=== PATIENT | female | born 1980 | race Caucasian/White ===

== ENCOUNTER 2016-04-02 02:22 | Emergency (ER) | payer MEDICAID ==
[~2016-04-02] VITALS: Ht 165.1 cm; Wt 78.0 kg
[2016-04-02 02:25] VITALS: Ht 165.1 cm; Wt 78.0 kg
[2016-04-02] MEDS ORDERED: PREN1TAB62 PO (03:20)
--- NOTE | 2016-04-02 04:29 | ERA ---
ER Documentation Chief Complaint Date/Time DATE: 04/02/16 TIME: 04:28 Chief Complaint cough congestion for past 2 days HPI The patient is a 35-year-old female, 23 weeks , presenting to the ER because of cough, congestion for 2 days. She ran out of her albuterol inhaler. She denies fever, chills, neck pain, chest pain, dyspnea, abdominal pain, vomiting, vaginal bleeding, vaginal discharge, dysuria. She does not smoke, drink Past medical history: Asthma Past surgical history: None ROS All systems reviewed and are negative except as per history of present illness. Medications Home Meds Active Scripts Albuterol Sulfate* (Proair HFA*) 8.5 Gm Hfa.aer.ad, 2 PUFF INH Q4H Y for WHEEZING AND SOB, #1 INHALER Prov:PEE ZIMMERMAN MD 04/02/16 Prednisone* (Prednisone*) 20 Mg Tab, 60 MG PO DAILY for 5 Days, TAB Prov:PEE ZIMMERMAN MD 04/02/16 Reported Medications Vit-Iron Fumarate-FA ( Vitamin Tablet) 1 Each Tablet, 1 TAB PO DAILY, TAB 04/02/16 Allergies Allergies: Coded Allergies: No Known Drug Allergy (Verified Allergy, Unknown, 04/02/16) PMhx/Soc History of Surgery: No Anesthesia Reaction: No Hx Neurological Disorder: No Hx Respiratory Disorders: Yes (asthma) Hx Cardiac Disorders: No Hx Psychiatric Problems: No Hx Miscellaneous Medical Probl: No Hx Alcohol Use: No Hx Substance Use: No Hx Tobacco Use: No Physical Exam Vitals Vital Signs Date Time Temp Pulse Resp B/P Pulse Ox O2 Delivery O2 Flow Rate FiO2 04/02/16 02:25 98.7 83 18 137/65 99 Physical Exam Const: No acute distress. Head: Atraumatic. Eyes: Normal Conjunctiva. ENT: Normal External Ears, Nose and Mouth. Neck: Full range of motion. No meningismus. Resp: Bilateral expiratory wheezes Cardio: Regular rate and rhythm, no murmurs. Abd: Soft, non distended, normal bowel sounds, non tender. Skin: No petechiae or rashes. Back: No midline or flank tenderness. Ext: No cyanosis, or edema. Neur: Awake and alert. No focal deficit Psych: Normal Mood and Affect. Results 24 hrs Current Medications Medications (Trade) Dose Ordered Sig/Nickie Route PRN Reason Start Time Stop Time Status Last Admin Dose Admin Levalbuterol (Xopenex Neb) 3.75 mg ONCE STAT INH 04/02/16 04:35 04/02/16 04:38 DC 04/02/16 04:44 Ipratropium [place] (Atrovent 0.02% (Neb)) 1.5 mg ONCE STAT INH 04/02/16 04:35 04/02/16 04:38 DC 04/02/16 04:43 Methylprednisolone Sodium Succinate (Solu-Medrol) 125 mg ONCE STAT IM 04/02/16 04:35 04/02/16 04:38 DC Procedures/MDM MEDICAL MAKING DECISION: The patient is a 35-year-old, presenting with acute asthma exacerbation. She was treated with Solu-Medrol 125 mg IM, Xopenex 3.75 mg and Atrovent 1.5 mg continuous nebulizer over one hour with good response. The differential diagnoses considered include but are not limited to asthma, COPD, pneumonia, pulmonary embolus, pleural effusion, congestive heart failure. Departure Diagnosis: Primary Impression: Asthma Condition: Good Comments She was discharged with albuterol MDI, prednisone I discussed the findings with the patient. I advised the patient to follow-up with the primary physician in about 1-2 days, sooner if needed and return if any concern. The patient's blood pressure was elevated (>120/80) but appears stable without evidence of hypertension emergency or urgency. The patient was counseled about the risks of hypertension and urged to pursue outpatient monitoring and therapy within a week with their primary care physician. PEE ZIMMERMAN MD Apr 02, 2016 04:29
[2016-04-02] MEDS ORDERED: IPRATROPIUM (NEB) 0.5 MG/2.5 ML AMP INH STA (04:35)
[2016-04-02] MEDS ORDERED: LEVALBUTEROL (NEB) 1.25 MG/0.5 ML AMP INH STA (04:35)
[2016-04-02] MEDS ORDERED: METHYLPREDNISOLONE 125 MG INJ IM STA (04:35)
[2016-04-02] MEDS ORDERED: PRED20TA PO (04:39)
[2016-04-02] MEDS ORDERED: ALBU8.5H3 INH (04:40)
[2016-04-02 06:03] VITALS: BP 110/63; PULSE 106; RESP 19
== END 2016-04-02 06:04 | disposition home or self-care (01) ==
LOC: E/R 02:22
DX: O99.512 Diseases of the respiratory system complicating pregnancy, second trimester (principal); J45.901 Unspecified asthma with (acute) exacerbation; R05 Cough; Z3A.23 23 weeks gestation of pregnancy
CPT/HCPCS: 94644; 96372; J2930; Z7502; Z7610

== ENCOUNTER 2016-04-02 03:00 | Outpatient (CLI) | payer MEDICAID ==
[~2016-04-02] VITALS: Ht 142.2 cm; Wt 76.2 kg
[2016-04-02 03:15] VITALS: Ht 142.2 cm; Wt 76.2 kg
[2016-04-02 03:17] VITALS: BP 112/64; PULSE 81; RESP 18
[2016-04-02] MEDS ORDERED: PREN1TAB62 PO (03:20)
[2016-04-02] MEDS ORDERED: PRED20TA PO (04:39)
[2016-04-02] MEDS ORDERED: ALBU8.5H3 INH (04:40)
--- NOTE | 2016-04-02 06:58 | QN ---
Documentation Comment 35 years old female with at 23 weeks and history of asthma presented with Shortness of breath and asthma attack. Denies any LOf, vaginla bleeding, and uterine contractions. Denies any decreased vaginal bleeidng, Denies any chest pain. No other complaint, Has a history of ASthema in the past, per patient symptoms decreased during . Has not been using treatment lately O; GA: A&O, NAD Lungs; Wheezing, No rales or ronchus CV: RRR Abdomen: Soft, non tender, Gravid Fundal height: Appropriate for GA Extremities No calf tenderness, negative [place] sign, no click, no edema O2 sat: 096 % in RA NST: CAt 1 and appropriate for GA No contractions on the monitor Assessment: IUP at 23 weeks + No OB issue SOB and wheezing due to asthma attack Patient will be sent to ED for treatment and evaluation Follow up with ob clinic in 1-2 days after DC home PTL precaution and [facility] Asthma eeucation and to continue Asthma treatment, Albuterol PRN after DC and follow up with PMD PASCUAL TOVAR MD Apr 02, 2016 06:58
== END 2016-04-02 03:40 | disposition home or self-care (01) ==
LOC: L-D 03:00 → OBT 03:00
PROVIDERS: ATTEND Obstetrics & Gynecology
DX: O99.512 Diseases of the respiratory system complicating pregnancy, second trimester (principal); J45.901 Unspecified asthma with (acute) exacerbation; Z3A.23 23 weeks gestation of pregnancy
CPT/HCPCS: G0463

== ENCOUNTER 2016-07-24 19:46 | Inpatient (IN) | payer MEDICAID ==
[~2016-07-24] VITALS: Ht 152.4 cm; Wt 78.2 kg
[~2016-07-24 19:46] MED LIST: ALBU8.5H3 INH; PRED20TA PO; PREN1TAB62 PO
[2016-07-24 20:22] VITALS: Ht 152.4 cm; Wt 78.2 kg
[2016-07-24 20:23] VITALS: BP 104/58; PULSE 65; RESP 18
[2016-07-24] MEDS ORDERED: FERR134T PO (20:27)
[2016-07-24] MEDS ORDERED: OXYTOCIN 30 UNITS/LR 500 ML IV PRN (20:30)
[2016-07-24] MEDS ORDERED: IBUPROFEN 600 MG TAB PO PRN (20:30)
[2016-07-24] MEDS ORDERED: MISOPROSTOL 200 MCG TAB PR PRN (20:30)
[2016-07-24] MEDS ORDERED: METHYLERGONOVINE 0.2 MG INJ IM PRN (20:30)
[2016-07-24] MEDS ORDERED: LIDOCAINE 1% (MPF) 30 ML INJ INJ PRN (20:30)
[2016-07-24] MEDS ORDERED: CARBOPROST 250 MCG INJ IM PRN (20:30)
[2016-07-24] MEDS ORDERED: OXYTOCIN 30 UNITS/LR 500 ML IV SCH ×2 (20:30)
[2016-07-24] MEDS ORDERED: ACETAMINOPHEN/CODEINE #3 TAB PO PRN (20:30)
[2016-07-24 20:41] LABS: ADD SCAN DIFF NO
[2016-07-24 20:43] LABS: BASOPHILS % 0.3 % (0.0-2.0); EOSINOPHILS # 0.1 10^3/ul (0.0-0.5); EOSINOPHILS % 1.9 % (0.0-7.0); HEMATOCRIT 35.5 % (37.0-47.0); HEMOGLOBIN 11.9 g/dl (12.0-16.0); LYMPHOCYTES # 1.4 10^3/ul (0.8-2.9); LYMPHOCYTES % 18.9 % (15.0-51.0); MEAN CORPUSCULAR HEMOGLOBIN 30.7 pg (29.0-33.0); MEAN CORPUSCULAR HGB CONC 33.5 g/dl (32.0-37.0); MEAN CORPUSCULAR VOLUME 91.7 fl (82.0-101.0); MONOCYTE # 0.6 10^3/ul (0.3-0.9); MONOCYTES % 7.3 % (0.0-11.0); NEUTROPHIL # 5.3 10^3/ul (1.6-7.5); NEUTROPHILS % 70.9 % (39.0-77.0); PLATELET COUNT 215 10^3/UL (140-415); RED BLOOD COUNT 3.87 10^6/ul (4.20-5.40); RED CELL DISTRIBUTION WIDTH 13.5 % (11.5-14.5); WHITE BLOOD COUNT 7.5 10^3/ul (4.8-10.8)
[2016-07-24] MEDS ORDERED: LACTATED RINGER'S 1,000 ML IV PRN (21:00)
[2016-07-24] MEDS: LACTATED RINGER'S 1,000 ML IV SCH (21:01)
[2016-07-24] MEDS: BUTORPHANOL 2 MG INJ IV PRN (21:02)
[2016-07-24 22:20] LABS: INR 0.94; PROTIME 12.6 Sec (12.2-14.2)
[2016-07-24 22:21] LABS: PARTIAL THROMBOPLASTIN TIME 26.7 Sec (25.0-35.0)
--- NOTE | 2016-07-24 22:30 | TRIAGE ---
OB Triage Datetime Report Generated by CPN: 07/24/2016 22:29 Datetime: 07/24/2016 22:17 Pain Assessment Pain Scale: 0 Pain Presence: None/Denies Pain Type: N/A Pain Goal: 0 Pain Assessment Comments: patient denies pain and is sleeping with respirations visible and audibl e Vaginal Exam Dilatation (cms): 7.0 Effacement (%): 90 Station: -1 Exam By: JF Membrane Status: Intact Vaginal Bleeding: None Cervix, Consistency: Soft Cervix, Position: Anterior Presentation 'A': Cephalic Datetime: 07/24/2016 21:30 Stage of : Labor Maternal Assessment Level of Consciousness: Fully Conscious Headache: Denies Blurred Vision: No Nausea/Vomiting: Denies RUQ Epigastric Pain: Denies Facial Edema: None Labor Evaluation Frequency: 1.5-6 Monitor Mode: External Duration (sec)2399: 50-90 Quality: Moderate Pattern: Normal: <= 5 Contractions in 10 Minutes Resting Tone [place]: Relaxed Heart Rate FHR Baseline Rate: 130 Monitor Mode: External US FHR Baseline Changes: No Baseline Change Variability: Moderate 6-25 bpm Accelerations: 15X15 Decelerations: None Category: Category I Pain Assessment Pain Scale: 0 Pain Presence: Intermittent Pain Type: N/A Pain Goal: 0 Pain Relief Measures: Comfort Measures Pain Assessment Comments: patient denies pain at this time Datetime: 07/24/2016 20:58 Pain Assessment Pain Scale: 2 Pain Presence: Intermittent Pain Type: Cramping; Contraction Pain Location: Abdomen; Back Pain Goal: 0 Pain Assessment Comments: Requesting pain medication Datetime: 07/24/2016 20:57 Stage of : Labor Datetime: 07/24/2016 20:42 Assessment Type: Admission Assessment Vaginal Bleeding: None Maternal Assessment Level of Consciousness: Fully Conscious DTR's/Clonus: DTRs Absent; No Clonus Headache: Denies Blurred Vision: No Respiratory Effort: Unlabored; Regular Rhythm; Equal Expansion Breath Sounds, Left: Clear and Equal Breath Sounds, Right: Clear and Equal Nausea/Vomiting: Denies RUQ Epigastric Pain: Denies Lower Extremities Edema: None Degree: None Upper Extremities Edema: None Degree: None Facial Edema: None Fall Risk Assessment History of Falling: (0) No Secondary Diagnosis: (0) No Ambulatory Aid: (0) Bedrest/Nurse Assist IV Therapy: (20) Yes Gait: (0) Normal/Bedrest/Immobile Mental Status: (0) Oriented to Own Ability Fall Score: 20 Fall Risk Score Definition: No Risk: No action required Pain Assessment Pain Scale: 6 Pain Presence: Intermittent Pain Type: Contraction Pain Location: Abdomen Membrane Status: Intact Datetime: 07/24/2016 20:39 Time of Arrival: 07/24/2016 20:00 EGA: 39.3 Arrived By: Wheelchair Arrived From: OB TRIAGE Datetime: 07/24/2016 20:15 Membrane Status: Intact Datetime: 07/24/2016 20:13 Vaginal Exam Dilatation (cms): 6.5 Effacement (%): 80 Station: -1 Exam By: Natasha Forbes RN Vaginal Bleeding: None Cervix, Consistency: Soft Cervix, Position: Anterior Presentation 'A': Cephalic Datetime: 07/24/2016 20:06 Monitor Mode: External Contraction Comments: Applied Monitor Mode: External US Comments: Applied Datetime: 07/24/2016 20:00 Time of Arrival: 07/24/2016 19:39 EGA: 39.3 Arrived By: Wheelchair Arrived From: Home Chief Complaint: UC's Movement: Present Contractions: Regular Time Contractions Began: 07/24/2016 05:00 Rupture of Membranes: Denies Vaginal Discharge: Denies Recent Sexual Intercouse: Denies Abdominal Trauma: Not Applicable Datetime: 07/13/2016 15:12 EGA: 23.2 Datetime: 04/02/2016 03:40 Stage of : OB Triage Datetime: 04/02/2016 03:30 Stage of : OB Triage Datetime: 04/02/2016 03:26 Labor Evaluation Frequency: 0 Monitor Mode: External Quality: Mild Pattern: Normal: <= 5 Contractions in 10 Minutes Resting Tone [place]: Relaxed Heart Rate FHR Baseline Rate: 145 Monitor Mode: External US FHR Baseline Changes: No Baseline Change Variability: Moderate 6-25 bpm Accelerations: 15X15 Decelerations: None Category: Category I Datetime: 04/02/2016 03:10 EGA: 23.2 Datetime: 04/02/2016 03:00 Stage of : OB Triage Time of Arrival: 04/02/2016 02:44 Arrived By: Wheelchair Arrived From: Emergency Dept Chief Complaint: ASTHMA Movement: Present Contractions: Denies/Absent Rupture of Membranes: Denies Vaginal Bleeding: None Vaginal Discharge: Denies Recent Sexual Intercouse: Denies Abdominal Trauma: Not Applicable Patient Complaints: None Additional Patient Complaints: PT STATES SHE IS HERE FOR ASTHMA, STATES DX 4 YRS AGO, PT RAN OUT OF INHALER X1 WK CAN NOT GET ANOTHER REFILL UNTIL 04/08/16, ON EXAMINATION EXPIRATORY WHEEZE HEARD (A nnotations: Data stored by CPN on behalf of user) Time Provider Notified: 04/02/2016 03:10 Initial Plan: CALL MALLORY FRAGOSO Maternal Assessment Level of Consciousness: Fully Conscious DTR's/Clonus: DTRs 2+; No Clonus Headache: Denies Blurred Vision: No Respiratory Effort: Unlabored; Regular Rhythm; Equal Expansion Breath Sounds, Left: Clear and Equal Breath Sounds, Right: Clear and Equal Nausea/Vomiting: Denies RUQ Epigastric Pain: Denies Lower Extremities Edema: None Degree: None Upper Extremities Edema: None Degree: None Facial Edema: None Temperature Route: Oral Fall Risk Assessment History of Falling: (0) No Secondary Diagnosis: (0) No Ambulatory Aid: (0) Bedrest/Nurse Assist IV Therapy: (0) No Gait: (0) Normal/Bedrest/Immobile Mental Status: (0) Oriented to Own Ability Fall Score: 0 Fall Risk Score Definition: No Risk: No action required Monitor Mode: External Monitor Mode: External US Pain Assessment Pain Scale: 8 Pain Presence: Intermittent Pain Type: Ache Pain Location: Back
--- NOTE | 2016-07-24 22:36 | RADRPT ---
PROCEDURE: Obstetrical ultrasound greater than 14 weeks CLINICAL INDICATION: labor TECHNIQUE: Real time sonographic imaging of the gravid uterus is performed transabdominally and mu ltiple static yoder scale and Doppler images are submitted for review as are measurements. The image s are reviewed on the PACS. COMPARISON: No relevant exams are available FINDINGS: There is a single living intrauterine gestation in cephalic presentation. The heart beat is estimated at 141 bpm. The measurements are as follows: BPD:9.21 cm HC:32.65 cm AC:33.05 cm FL:7.22 cm Estimated gestational age is 37 weeks 1 day. The estimated date of delivery is 08/13/2016. The estimated weight is 3095 grams. Placenta is the fundal and grade2. There is no evidence of placenta previa or abruption. The amniotic fluid is qualitatively low RPTAT:HJJR IMPRESSION: 1. Single viable intrauterine gestation in cephalic presentation estimated at 37 weeks 1 day with th e estimated date of delivery 08/13/2016. 2. Estimated weight 3095 g. 3. Fundal grade II placenta. Physician Ghislaine Date Time Electronically viewed and signed by Physician Ghislaine on 07/24/2016 22:36 JR/
--- NOTE | 2016-07-25 00:43 | NSTRPT ---
NST Information Datetime Report Generated by CPN: 07/25/2016 00:42 Datetime: 07/23/2016 10:20 NST Information EGA: 39.2 Test Number: 4 Time on Monitor: 07/23/2016 10:54 Time off Monitor: 07/23/2016 11:28 NST Duration (Min): 34 Reason for NST: Diabetes Mellitus; Other Reason for NST Other: A1DM Test and Monitor Explained: Monitor Explained; Test Explained; Verbalized Understanding Pulse: 62 Resp: 16 SBP: 93 DBP: 55 Test Evaluation NST Interventions: Reposition Patient Patient States Movement: Present Contraction Frequency: x1, mild FHR Baseline : 140 Variability: Moderate 6-25bpm Accelerations: 15X15 Decelerations: None FHR Category: Category I NST Results: Reactive Comments: To u/s, [place] 10.6cm, cephalic FBS 85 1129-Pt home undelivered with labor precautions, kick count instructions reviewed and follo w up NST appt given. States understanding and denies further questions at this time. Electronically Signed By E-Signature: with User ID: [email or web address] Datetime: 07/20/2016 09:52 NST Information EGA: 38.6 NST Duration (Min): 32 Datetime: 07/16/2016 09:36 NST Information EGA: 38.2 NST Duration (Min): 22 Datetime: 07/13/2016 15:12 NST Information EGA: 37.6 Datetime: 07/13/2016 14:40 NST Information EGA: 37.6 NST Duration (Min): 37
[2016-07-25] MEDS: LACTATED RINGER'S 1,000 ML IV SCH (01:40)
[2016-07-25] MEDS ORDERED: OXYTOCIN 30 UNITS/LR 500 ML IV SCH ×2 (03:00→10:27)
[2016-07-25] MEDS: BUTORPHANOL 2 MG INJ IV PRN (03:12)
--- NOTE | 2016-07-25 05:23 | LDN ---
Date/Time of Note Date/Time of Note DATE: 07/25/16 TIME: 05:22 Delivery Summary Uncomplicated vaginal delivery Weeks of Gestation 39 wks Placenta Delivered: Spontaneously Meconium: none Anesthesia type: None Estimated blood loss: 200 Sponge & Needle done & correct: Yes All needle counts correct: Yes Problems: Infant Delivery Information Apgars 1 Minute: 8 5 Minute: 9 Suctioning Nose & mouth suctioned at jimy: Yes Delee suction performed: Yes Umbilical Cord Umbilical cord with: 3 Vessels Cord presentations: no nuchal cord Cord Blood was obtained: Yes Mother & Baby Disposition Disposition Mom & Baby to Maternity; Good: Yes Baby to NICU: No VINNY GUERRA M.D. Jul 25, 2016 05:23
--- NOTE | 2016-07-25 05:25 | HP ---
Date/Time of Note Date/Time of Note DATE: 07/25/16 TIME: 05:24 OB - History Hx of Present Free Text/Dictation @39+wks GA labor : 8 Para: 5 Care: Good Care Ultrasounds: Normal mid trimester US Obstetrical Complications: None Medical Complications: None Past Family/Social History * Past Medical, Surgical, Family and Obstetric Histories reviewed from chart. OB Admission Exam Vital Signs Vital Signs Vital Signs Date Time Temp Pulse Resp B/P Pulse Ox O2 Delivery O2 Flow Rate FiO2 07/24/16 20:23 98.2 65 18 104/58 Room Air Physical Exam Cervical Dilatation: 6cm Effacement: 75% Station: -1 Membranes: Intact Heart Rate: 140's Accelerations: Accelerations Present Decelerations: No Decelerations Varibility: Moderate Contractions on Admission: 6-10 Minutes Apart Last 72 hourBlood Glucose Bedside Glucose - 72 Hours Test 07/25/16 02:14 Bedside Glucose 99mg/dL (70-220) Last 72 hours Lab Results CBC & BMP 07/24/16 20:30 07/24/16 21:43 OB Assessment/Plan Plan: Expectant Management VINNY GUERRA M.D. Jul 25, 2016 05:25
[2016-07-25 06:52] VITALS: BP 111/63; PULSE 63; RESP 18
[2016-07-25 07:40] VITALS: BP 112/67; PULSE 59; RESP 16
[2016-07-25] MEDS ORDERED: ACCU-CHEK XX SCH (10:05)
[2016-07-25] MEDS ORDERED: LACTATED RINGER'S 1,000 ML IV SCH (10:05)
[2016-07-25] MEDS ORDERED: BENZOCAINE 20% 56 ML SPRAY TOP PRN (10:30)
[2016-07-25] MEDS ORDERED: LANOLIN 7 GM TUBE TOP PRN (10:30)
[2016-07-25] MEDS ORDERED: ACETAMINOPHEN/CODEINE #3 TAB PO PRN ×2 (10:30)
[2016-07-25] MEDS ORDERED: ACETAMINOPHEN 325 MG TAB PO PRN (10:30)
[2016-07-25] MEDS ORDERED: MISOPROSTOL 200 MCG TAB PR PRN (10:30)
[2016-07-25] MEDS ORDERED: OXYCODONE/ASPIRIN (4.88/325) TAB PO PRN ×2 (10:30)
[2016-07-25] MEDS ORDERED: LIDOCAINE 1% (MPF) 30 ML INJ INJ PRN (10:30)
[2016-07-25] MEDS ORDERED: ONDANSETRON 4 MG INJ IV PRN (10:30)
[2016-07-25] MEDS ORDERED: DIBUCAINE 1% 30 GM OINT PR PRN (10:30)
[2016-07-25] MEDS ORDERED: WITCH HAZEL/GLYCERIN PAD PR PRN (10:30)
[2016-07-25] MEDS ORDERED: OXYTOCIN 30 UNITS/LR 500 ML IV PRN (10:30)
[2016-07-25] MEDS ORDERED: METHYLERGONOVINE 0.2 MG INJ IM PRN (10:30)
[2016-07-25] MEDS ORDERED: CARBOPROST 250 MCG INJ IM PRN (10:30)
[2016-07-25] MEDS: SENNA/DOCUSATE NA (8.6MG/50MG) TAB PO SCH ×2 (10:37→21:04)
[2016-07-25] MEDS: IBUPROFEN 600 MG TAB PO SCH ×3 (11:25→23:57)
[2016-07-25 12:11] LABS: ADD SCAN DIFF NO
[2016-07-25 12:19] LABS: BASOPHILS % 0.2 % (0.0-2.0); EOSINOPHILS # 0.1 10^3/ul (0.0-0.5); EOSINOPHILS % 0.9 % (0.0-7.0); HEMATOCRIT 35.9 % (37.0-47.0); HEMOGLOBIN 12.2 g/dl (12.0-16.0); LYMPHOCYTES # 1.4 10^3/ul (0.8-2.9); LYMPHOCYTES % 13.7 % (15.0-51.0); MEAN CORPUSCULAR HEMOGLOBIN 31.4 pg (29.0-33.0); MEAN CORPUSCULAR VOLUME 92.5 fl (82.0-101.0); MEAN PLATELET VOLUME 11.2 fl (7.4-10.4); MONOCYTE # 0.8 10^3/ul (0.3-0.9); MONOCYTES % 8.3 % (0.0-11.0); NEUTROPHIL # 7.5 10^3/ul (1.6-7.5); NEUTROPHILS % 76.6 % (39.0-77.0); PLATELET COUNT 204 10^3/UL (140-415); RED BLOOD COUNT 3.88 10^6/ul (4.20-5.40); RED CELL DISTRIBUTION WIDTH 13.6 % (11.5-14.5); WHITE BLOOD COUNT 9.8 10^3/ul (4.8-10.8)
[2016-07-25 12:26] LABS: INR 0.86; PARTIAL THROMBOPLASTIN TIME 26.9 Sec (25.0-35.0); PROTIME 11.7 Sec (12.2-14.2); PT RATIO 0.9
[2016-07-25 16:32] VITALS: BP 101/60; PULSE 65; RESP 16
[2016-07-25 20:00] VITALS: BP 122/64; PULSE 74; RESP 20
[2016-07-26 04:23] VITALS: BP 120/60; PULSE 70; RESP 20
[2016-07-26] MEDS: IBUPROFEN 600 MG TAB PO SCH ×4 (05:24→23:22)
[2016-07-26] MEDS ORDERED: ACCU-CHEK XX SCH (06:00)
[2016-07-26 07:38] LABS: ADD SCAN DIFF NO
[2016-07-26 07:40] VITALS: BP 107/56; PULSE 59; RESP 20
[2016-07-26 07:41] LABS: BASOPHILS % 0.3 % (0.0-2.0); EOSINOPHILS # 0.2 10^3/ul (0.0-0.5); EOSINOPHILS % 2.5 % (0.0-7.0); HEMATOCRIT 35.3 % (37.0-47.0); HEMOGLOBIN 11.3 g/dl (12.0-16.0); LYMPHOCYTES # 1.7 10^3/ul (0.8-2.9); LYMPHOCYTES % 24.2 % (15.0-51.0); MEAN CORPUSCULAR HEMOGLOBIN 30.1 pg (29.0-33.0); MEAN CORPUSCULAR VOLUME 94.1 fl (82.0-101.0); MEAN PLATELET VOLUME 11.5 fl (7.4-10.4); MONOCYTE # 0.5 10^3/ul (0.3-0.9); MONOCYTES % 7.5 % (0.0-11.0); NEUTROPHIL # 4.5 10^3/ul (1.6-7.5); NEUTROPHILS % 65.1 % (39.0-77.0); PLATELET COUNT 206 10^3/UL (140-415); RED BLOOD COUNT 3.75 10^6/ul (4.20-5.40); WHITE BLOOD COUNT 6.9 10^3/ul (4.8-10.8)
[2016-07-26] MEDS: SENNA/DOCUSATE NA (8.6MG/50MG) TAB PO SCH ×2 (09:05→21:21)
--- NOTE | 2016-07-26 15:51 | PN ---
Date/Time of Note Date/Time of Note DATE: 07/26/16 TIME: 15:50 OB Subjective Subjective Subjective Post normal vaginal delivery day 1 Afebrile abdomen soft uterus firm lochia normal extremity normal plan of a.m. discharge discussed DERIK BRADFORD MD Jul 26, 2016 15:51
[2016-07-26 16:00] VITALS: BP 128/75; PULSE 57; RESP 17
[2016-07-26] MEDS: ALBUTEROL 18 GM INHALER INH PRN (17:12)
[2016-07-26 20:00] VITALS: BP 118/69; PULSE 74; RESP 20
[2016-07-27 04:27] VITALS: BP 101/52; PULSE 70; RESP 20
[2016-07-27] MEDS: IBUPROFEN 600 MG TAB PO SCH ×3 (05:09→18:39)
[2016-07-27 08:00] VITALS: BP 100/58; PULSE 73; RESP 18
[2016-07-27] MEDS: SENNA/DOCUSATE NA (8.6MG/50MG) TAB PO SCH (08:40)
[2016-07-27] MEDS: ALBUTEROL 18 GM INHALER INH PRN (08:41)
[2016-07-27] MEDS ORDERED: MEASLES,MUMPS,RUBELLA VACCINE INJ SC* ONE (09:00)
--- NOTE | 2016-07-27 10:14 | DS ---
Date/Time of Note Date/Time of Note DATE: 07/27/16 TIME: 10:12 Obstetrical Discharge Record Final Diagnosis Final Diagnosis: Term delivered Vaginal Delivery Obstetrical Delivery: Spontaneous Condition on Discharge Physical Assessment Last Vitals: Post normal vaginal delivery day 2, abdomen soft uterus firm lochia normal extremity normal Voiding: Yes Bowel Movement: Yes Breast: Soft, non-tender, Filling Fundus: Firm Calf Tenderness: No Patient Condition: Good DERIK BRADFORD MD July 27, 2016 10:14
[2016-07-27 16:00] VITALS: BP 108/62; PULSE 72; RESP 18
== END 2016-07-27 18:32 | disposition home or self-care (01) | DRG 775 ==
LOC: CANPRECLI → OBT 19:46 → L-D 19:46 → OBT 20:15 → L-D 20:15 → PP1 07-25 06:15
PROVIDERS: ADMIT Obstetrics & Gynecology; ATTEND Obstetrics & Gynecology
PROC: 10E0XZZ Delivery of Products of Conception, External Approach (ICD-10-PCS; principal; 2016-07-25)
DX: O80 Encounter for full-term uncomplicated delivery (principal); Z37.0 Single live birth; Z3A.39 39 weeks gestation of pregnancy
CPT/HCPCS: 76815; 82947; 82962; 85025; 85610; 85730; 86592; 86900; 86901; G0463; J2590; J7120